=== PATIENT | male | born 1980 | race Caucasian/White ===

== ENCOUNTER 2016-08-26 13:48 | Outpatient (CLI) | payer OTHER | END 2016-08-26 13:49 | disposition home or self-care (01) | DX: G47.33 Obstructive sleep apnea (adult) (pediatric) (principal) ==

== ENCOUNTER 2017-01-23 11:19 | Outpatient (CLI) | payer OTHER | END 2017-01-23 11:20 | disposition home or self-care (01) | LOC: SC 11:19 | PROVIDERS: ATTEND Internal Medicine Pulmonary Disease | DX: G47.33 Obstructive sleep apnea (adult) (pediatric) (principal) | CPT/HCPCS: 99212; 99213 ==

== ENCOUNTER 2017-03-03 10:11 | Outpatient (CLI) | payer OTHER | END 2017-03-03 10:12 | disposition home or self-care (01) | LOC: SC 10:11 | PROVIDERS: ATTEND Internal Medicine Pulmonary Disease | DX: G47.33 Obstructive sleep apnea (adult) (pediatric) (principal) | CPT/HCPCS: 99212; 99213 ==